=== PATIENT | female | born 1940 | race Caucasian/White ===

== ENCOUNTER 2016-11-06 19:59 | Emergency (ER) | payer OTHER ==
[~2016-11-06] VITALS: Ht 170.2 cm; Wt 87.3 kg
[~2016-11-06 19:59] MED LIST: FOSAMAX5 MG PO
[2016-11-06 21:31] LABS: COLOR ORANGE ((YELLOW)); GLUCOSE (STRIP) TRACE; KETONES 15; LEUKOCYTES LARGE
[2016-11-06 21:32] LABS: ADD MIUA? YES; BLOOD SMALL
[2016-11-06 21:43] LABS: HEMATOCRIT 43.5 % (36.0-46.0); MCH 28.9 PG (29.0-34.0); MCHC 33.1 G/DL (30.0-36.0); MCV 87.2 FL (83-99); MEAN PLAT.VOLUME 11.1 uM^3 (9.5-12.4); PLATELET COUNT 287 K/uL (156-360); RBC DIS.WIDTH-SD 43.9 % (39-53); RED BLOOD COUNT 4.99 M/uL (3.80-5.20); WHITE BLOOD COUNT 14.6 K/uL (4.1-10.2)
[2016-11-06 21:47] LABS: EPITHELIAL CELLS 1+ /HPF; RED BLOOD CELLS 0-5 /HPF (0-5); WHITE BLOOD CELLS TNTC /HPF (0-5)
[2016-11-06 21:48] LABS: BACTERIA 2+ /HPF; MUCUS RARE /LPF; UCUL ADDED? YES
[2016-11-06 21:50] LABS: CASTS NONE SEEN /LPF; CRYSTALS NONE SEEN
[2016-11-06 21:54] LABS: CHLORIDE 106 mEq/L (99-109); SODIUM 143 mEq/L (136-147)
[2016-11-06 21:56] LABS: GLUCOSE 125 mg/dL (70-99)
[2016-11-06 21:57] LABS: ANION GAP 12 MEQ/L (2-14)
[2016-11-06 21:58] LABS: TOTAL BILIRUBIN 0.3 mg/dL (0.0-1.0)
[2016-11-06 22:00] LABS: ALKALINE PHOSPHATASE 84 IU/L (3-129); GFR ESTIMATE (CALCULATED) > 59 mL/min/
[2016-11-06 22:01] LABS: UREA NITROGEN (BUN) 24 mg/dL (9-23)
[2016-11-06] MEDS ORDERED: BACTRIM,SEPT1 TABLET PO (22:53)
[2016-11-06] MEDS ORDERED: ZOFRAN ODT4 MG PO (22:53)
[2016-11-06] MEDS ORDERED: FLOMAX0.4 MG PO (22:53)
[2016-11-06 23:29] VITALS: BP 168/75
== END 2016-11-06 23:30 | disposition home or self-care (01) ==
LOC: EME 19:59
PROVIDERS: Nurse Practitioner Family
DX: N39.0 Urinary tract infection, site not specified (principal); R10.9 Unspecified abdominal pain; R11.2 Nausea with vomiting, unspecified; Z87.442 Personal history of urinary calculi
CPT/HCPCS: 74177; 80053; 81003; 85027; 87086; 99281; 99285; J1885; J2270; J2405; J7030